=== PATIENT | male | born 1965 | race Hispanic/Latino ===

== ENCOUNTER 2023-08-18 02:30 | Emergency (ER) | payer OTHER ==
[~2023-08-18] VITALS: Ht 170.2 cm; Wt 81.6 kg
[2023-08-18] MEDS: KETOROLAC 60 MG VIAL (30MG/ML) IM ONE (02:55)
[2023-08-18 03:55] VITALS: PULSE 93; RESP 18; O2SAT 100
[2023-08-18] MEDS: PROPOFOL 10 MG/ML 20ML VIAL IV SCH (04:33)
[2023-08-18] MEDS: KETOROLAC 15MG/ML VIAL (15MG/ML) IV ONE (05:00)
[2023-08-18] MEDS ORDERED: IBUP-1493 PO (05:26)
[2023-08-18 05:27] VITALS: BP 172/70; PULSE 80; RESP 20; O2SAT 96
[2023-08-18] MEDS: TRAMADOL HCL 50 MG TABLET PO ONE (05:27)
== END 2023-08-18 05:35 | disposition home or self-care (01) ==
LOC: EDH 02:30
DX: M24.412 Recurrent dislocation, left shoulder (principal); M25.312 Other instability, left shoulder; Z98.890 Other specified postprocedural states
CPT/HCPCS: 99285; 23650; 96374; 73000; 73060; 73030 ×2; 96372; J2704; J1885 ×2; J3490